=== PATIENT | male | born 1980 | race Caucasian/White ===

== ENCOUNTER 2019-11-13 10:55 | Inpatient (IN) | payer BC ==
[~2019-11-13] VITALS: Ht 175.3 cm; Wt 80.3 kg
[2019-11-13 10:59] VITALS: BP 130/85
--- NOTE | 2019-11-13 11:06 | NUR ---
Patient ambulated to bed 6. RN evaluating patient at bedside.
--- NOTE | 2019-11-13 11:09 | NUR ---
DR. BAKER AT BEDSIDE.
--- NOTE | 2019-11-13 11:19 | NUR ---
Patient taken to XRAY via wheelchair by tech.
--- NOTE | 2019-11-13 11:21 | NUR ---
39 Y/M PRESENTS TO ED WITH C/O L ARM PAIN POST SPLITTING WOOD ON WEDNESDAY WAS SEEN BY [facility], XRAYS WERE PERFORMED, PT WAS REFFERED TO ANOTHER DR WHO TOLD PT HE COULDNT BE SEEN UNTIL DECEMBER. PT BROUGHT IN COPY OF XR WITH FOREIGN BODY IN L FOREARM. PT REPORTS NUMBNESS TO L HAND AND LIMITED ROM TO LEFT FINGERS. PULESES 2+ PRESENT. PT REPORTS 10/10 SHARP PAIN RADIATING TO L HAND. LACERATION 1 INCH, ERYTHEMA AND EDEMA TO LEFT FOREARM. SKIN DRY AND INTACT. DRIED BLOOD, WOUND DOES NOT LOOK INFECTED, NO DISCHARGE OR EXUDATE NOTED. DENIES FEVER. PT A &O X 4, NO DISTRESS NOTED. VSS PMH- DENIES
--- NOTE | 2019-11-13 12:49 | NUR ---
Dr. Elmer Jacobo is evaluating the patient at bedside.
--- NOTE | 2019-11-13 12:57 | NUR ---
LAB AT BEDSIDE.
[2019-11-13 13:17] LABS: BASOPHILS # (AUTO) 0.1 K/uL (0.00-0.22); BASOPHILS % (AUTO) 0.8 % (0.0-2.0); EOSINOPHILS # (AUTO) 0.3 K/uL (0-0.4); EOSINOPHILS % (AUTO) 2.9 % (0.0-4.0); HEMATOCRIT 49.4 % (36-52); HEMOGLOBIN 16.6 g/dL (12.0-18.0); LYMPHOCYTES # (AUTO) 1.9 K/uL (2.0-11.5); LYMPHOCYTES % (AUTO) 21.2 % (20.5-51.1); MEAN CORPUSCULAR HEMOGLOBIN 31 pg (27-31); MEAN CORPUSCULAR HGB CONC 34 g/dL (33-37); MEAN CORPUSCULAR VOLUME 92.1 fL (80-94); MONOCYTES # (AUTO) 0.6 K/uL (0.8-1.0); MONOCYTES % (AUTO) 6.6 % (1.7-9.3); NEUTROPHILS % (AUTO) 68.5 % (42.2-75.2); PLATELET COUNT (AUTO) 200 K/uL (140-450); RED BLOOD CELL COUNT(AUTO) 5.37 MIL/uL (4.20-6.10); RED CELL DISTRIBUTION WIDTH 13.2 % (11.6-13.7); WHITE BLOOD COUNT (AUTO) 8.8 K/uL (4.8-10.8)
[2019-11-13] MEDS ORDERED: DEXT 5% /NACL 0.9% 1,000 ML IV SCH (13:21)
[2019-11-13] MEDS ORDERED: ONDANSETRON 4 MG/2 ML VIAL IM/IVP PRN (13:25)
[2019-11-13] MEDS ORDERED: ACETAMINOPHEN 325 MG TAB PO PRN (13:25)
[2019-11-13] MEDS ORDERED: DOCUSATE SODIUM 100 MG GELCAP PO PRN (13:25)
[2019-11-13] MEDS ORDERED: ZOLPIDEM 5 MG TAB PO PRN (13:25)
[2019-11-13] MEDS ORDERED: HYDROcodone/APAP 7.5/325 MG 1 TAB PO PRN (13:25)
[2019-11-13] MEDS ORDERED: MORPHINE SULFATE 4 MG/ML SYR IVP PRN (13:25)
[2019-11-13] MEDS ORDERED: LORazepam 2 MG/ML VIAL IM/IVP PRN (13:25)
[2019-11-13 13:50] LABS: ANION GAP 14.2 (8-16); CARBON DIOXIDE 28.8 mmol/L (21-32); CREATININE 0.8 mg/dL (0.6-1.3)
[2019-11-13 13:51] LABS: PROTHROMBIN TIME 9.6 secs (10.8-13.4)
[2019-11-13 13:55] VITALS: BP 119/68
--- NOTE | 2019-11-13 13:55 | NUR ---
PT CAME TO UNIT ON WHEEL CHAIR. PT IS AMBULATORY, ALERT AND AWAKE AND RESPONSIVE. ADMISSION ASSESSMENT DONE. NOTED WITH WOUND TO LEFT FORE ARM. PHOTOGRAPH TAKEN. PT IS NPO AT THIS TIME. PAIN IS TOLERABLE. NOT REQUESTING PAIN MEDS. IV INTACT. ID BAND ON PATIENT. PT HAS CELLPHONE AND WALLET WITH HIM. SAFETY MEASURES IN PLACE. CALL LIGHT IN REACH.
--- NOTE | 2019-11-13 13:59 | NUR ---
Patient will be admitted to care of [facility]. Admited to MED SURG. Will go to room 126B. Belongings list completed. Report to REMY TIDWELL.
[2019-11-13] MEDS ORDERED: LACTOBACILLUS RHAMNOSUS GG 1 EACH CAP PO SCH (14:00)
[2019-11-13] MEDS ORDERED: CLINDAMYCIN 600 MG in DEXTROSE 5% 50 ML IV SCH (14:00)
[2019-11-13] MEDS ORDERED: AMOX-999 PO (14:03)
[2019-11-13 14:04] LABS: PROTHROMBIN TIME 9.7 secs (10.8-13.4)
[2019-11-13 14:16] LABS: ALBUMIN 4.5 g/dL (3.4-5.0); ANION GAP 14.2 (8-16); CARBON DIOXIDE 28.8 mmol/L (21-32); CREATININE 0.8 mg/dL (0.6-1.3); TOTAL BILIRUBIN 0.7 mg/dL (0.0-1.0)
[2019-11-13 14:17] LABS: MAGNESIUM 1.8 mg/dL (1.8-2.4); PHOSPHORUS 2.9 mg/dL (2.5-4.9); THYROID STIMULATING HORMONE 10.94 uIU/mL (0.34-3.74)
--- NOTE | 2019-11-13 15:49 | NUR ---
DISCHARGE PLANNING: THIS IS A 39 Y/O MALE PATIENT FROM HOME, WHO CAM IN DUE TO LEFT ARM PAIN X 2 DAYS. NO PERTINENT PAST MEDICAL HISTORY. INITIAL DIAGNOSIS OF LEFT ARM FOREIGN BODY. CURRENT LABS INCLUDE WBC 8.8, H/H 16.6/49.4, NA/K 143/4.0, BUN/CREA 13/0.8 AND TSH 10.94. FOREARM X RAY SHOWED NO ACUTE OSSEOUS INJURY AND IRREGULAR TRIANGULAR RADIOPAQUE FOREIGN BODY PROJECTED OVER THE MID RADIUS. CXR NORMAL. SURGICAL CONSULT IN PLACE. ON CLINDAMYCIN. DC PLAN BACK TO HOME ONCE STABLE.
[2019-11-13 16:00] VITALS: BP 113/77
--- NOTE | 2019-11-13 17:51 | NUR ---
PT IS OFF OF UNIT. PT TAKEN TO OR.
[2019-11-13] MEDS ORDERED: KETOROLAC 30 MG/ML VIAL ONE (18:25)
[2019-11-13] MEDS ORDERED: DESFLURANE 240 ML BTL INH ONE (18:25)
[2019-11-13] MEDS ORDERED: DEXAMETHASONE 4 MG/ML VIAL ONE (18:25)
[2019-11-13] MEDS ORDERED: PROPOFOL 200 MG/20 ML VIAL IV ONE (18:25)
[2019-11-13] MEDS ORDERED: ONDANSETRON 4 MG/2 ML VIAL ONE (18:25)
[2019-11-13] MEDS ORDERED: BUPIVACAINE-MPF/EPI 0.5% 30 ML VIAL INJ ONE (18:43)
[2019-11-13] MEDS ORDERED: ONDANSETRON 4 MG/2 ML VIAL IVP PRN (19:20)
--- NOTE | 2019-11-13 19:27 | NUR ---
SHIFT REPORT GIVEN TO PAROLE SUPERVISOR NURSE. PT IS IN OR AT THIS TIME.
--- NOTE | 2019-11-13 19:50 | NUR ---
RECD. FROM OR VIA BED, ACCOMPANIED BY OR NURSES. AWAKE, A/OX4. RESPIRATION EVEN AND UNLABORED. IV SALINE LOCK AT THE RIGHT AC G20, PATENT AND INTACT. S/P EXPLORATION OF LEFT FOREARM, REMOVAL OF FOREIGN BODY. LEFT FOREARM COVERED WITH KRISTYN WRAP BANDAGE DRY AND INTACT. VS STABLE. DENIES PAIN 0/10. FATHER AT THE BEDSIDE.
--- NOTE | 2019-11-13 20:00 | NUR ---
CARE PLAN DISCUSSED AND REVIEWED AND WITH MOISES DEL CID LVN.
--- NOTE | 2019-11-13 20:20 | NUR ---
TOLERATED WELL CLEAR LIQUID DIET.
--- NOTE | 2019-11-13 20:45 | NUR ---
REFUSED IV ANTIBIOTIC TO BE INFUSED BY YAW NOEL. STATED I AM OK. FATHER STATED PATIENT HAS PO ANTIBIOTIC AT HOME.
--- NOTE | 2019-11-13 20:50 | NUR ---
VOIDED IN THE URINAL CLEAR YELLOW URINE 150 ML IN AMOUNT.
--- NOTE | 2019-11-13 20:53 | NUR ---
PATIENT AND FATHER WANTS TO GO HOME SOON POSSIBLE DISCHARGE INSTRUCTIONS GIVEN. PATIENT VERBALIZED UNDERSTANDING.
--- NOTE | 2019-11-13 20:55 | NUR ---
INFORMED DR. MELENDREZ PATIENT WANTS TO GO HOME TONIGHT, REFUSED IV ANTIBIOTICS. PATIENT NEED TO STAY FOR THE NIGHT, WILL SPEAK WITH PATIENT.
--- NOTE | 2019-11-13 21:00 | NUR ---
DR. MELENDREZ SPOKE WITH PATIENT, EXPLAINED PATIENT IS STILL WITH IV ANTIBIOTICS BUT PATIENT INSISTED THAT HE IS GOING HOME.
--- NOTE | 2019-11-13 21:15 | NUR ---
PATIENT SIGNED AMA PAPER. IV TAKEN OUT. DR. PHILLIPS'S PRESCRIPTION FOR PAIN GIVEN. BOBTAILER MARIANGEL INFORMED BY CHARGE NURSE JEREMY REGARDING PT GOING AMA.
--- NOTE | 2019-11-13 21:35 | NUR ---
TAKEN TO HOSPITAL LOBBY PARKING VIA W/C IN STABLE CONDITION BY CN TO GO TO PRIVATE VEHICLE TO HOME.
[2019-11-14 10:33] LABS: T4 (THYROXINE) 7.9 ug/dL (4.5-12.0)
== END 2019-11-13 21:35 | disposition left against medical advice (07) | DRG 605 ==
LOC: MED 10:55 → MMU 13:26
PROVIDERS: ADMIT General Practice; ATTEND General Practice
PROC: 0JCH0ZZ Extirpation of Matter from Left Lower Arm Subcutaneous Tissue and Fascia, Open Approach (ICD-10-PCS; principal; 2019-11-13 18:20)
DX: S50.852A Superficial foreign body of left forearm, initial encounter (principal); W45.8XXA Other foreign body or object entering through skin, initial encounter; Z53.29 Procedure and treatment not carried out because of patient's decision for other reasons; Z83.3 Family history of diabetes mellitus; Y93.89 Activity, other specified; Y92.89 Other specified places as the place of occurrence of the external cause; Y99.8 Other external cause status
CPT/HCPCS: 36415; 71045; 73090; 77003; 80048; 80053; 83036; 83735; 83880; 84100; 84134; 84436; 84443; 84484; 85025; 85610; 85730; 87081; 88300; 93930; 93970; 99285; J1100; J1885; J2405; J2704; J3490; J7042; J7060; Q0092